=== PATIENT | male | born 1970 | race African-American/Black ===

== ENCOUNTER 2020-06-21 12:15 | Emergency (ER) | payer SELFPAY ==
[~2020-06-21] VITALS: Ht 175.3 cm; Wt 75.7 kg
[2020-06-21 12:22] VITALS: BP 120/86
[2020-06-21] MEDS ORDERED: methylPREDNISolone SOD SUCC 125 MG/2 ML VL IM ONE (13:45)
[2020-06-21] MEDS ORDERED: cefTRIAXone SOD 1,000 MG VL IM ONE (13:45)
[2020-06-21] MEDS ORDERED: methylPREDNISolone SOD SUCC 125 MG/2 ML VL ONE (13:46)
[2020-06-21] MEDS ORDERED: cefTRIAXone SOD 1,000 MG VL ONE (13:46)
== END 2020-06-21 14:05 | disposition home or self-care (01) ==
LOC: ER 12:15
DX: S81.831A Puncture wound without foreign body, right lower leg, initial encounter (principal); J03.80 Acute tonsillitis due to other specified organisms; W18.09XA Striking against other object with subsequent fall, initial encounter; Y93.89 Activity, other specified; Y92.89 Other specified places as the place of occurrence of the external cause; Y99.8 Other external cause status
CPT/HCPCS: 96372; 99284; J0696; J2930